=== PATIENT | male | born 1950 | race Caucasian/White ===

== ENCOUNTER 2018-01-26 07:49 | Emergency (ER) | payer BC ==
[2018-01-26 08:00] VITALS: BP 148/89
--- NOTE | 2018-01-26 08:33 | UC ---
Respiratory Complaint HPI - HPI Summary HPI Summary: This is a 68 yo male with h/o CAD who presents with c/o 5d of cough and congestion. Symptoms started after an aspiration event at dinner. He has had a productive cough, feverish for the first couple of days. Some anterior chest pain with deep inspiration. No dyspnea. No abd pain, n/v. - History of Current Complaint Chief Complaint: UCGeneralIllness Stated Complaint: URI Pain Intensity: 5 - Allergies/Home Medications Allergies/Adverse Reactions: Allergies Allergy/AdvReac Type Severity Reaction Status Date / Time beta blockers Allergy Severe Difficulty Uncoded 01/26/18 07:53 Breathing Home Medications: Home Medications Doxylamine/Phenylep/Dm/Aspirin [[facility] Day-Night Tab Eff] 1 tab PO ONCE PRN 01/26/18 [History Confirmed 01/26/18] Enalapril Maleate 2.5 mg PO DAILY 01/26/18 [History Confirmed 01/26/18] PMH/Surg Hx/FS Hx/Imm Hx Cardiovascular History: Cardiac Disease - s/p CABG - Surgical History Surgical History: Yes Surgery Procedure, Year, and Place: Bypass 2005, 2 stents 2009, - Family History Known Family History: Positive: Cardiac Disease - Social History Alcohol Use: Daily Alcohol Amount: 1 PER DAILY Substance Use Type: None Smoking Status (MU): Never Smoked Tobacco Review of Systems Constitutional: Fever, Fatigue Skin: Negative Eyes: Negative ENT: Negative Respiratory: Cough Cardiovascular: Negative Gastrointestinal: Negative Genitourinary: Negative Motor: Negative Neurovascular: Negative Musculoskeletal: Negative Neurological: Negative Psychological: Negative Is Patient Immunocompromised?: No All Other Systems Reviewed And Are Negative: Yes Physical Exam Triage Information Reviewed: Yes Appearance: Ill-Appearing Vital Signs: Initial Vital Signs Temp 98.0 F 01/26/18 07:56 Pulse 69 01/26/18 07:56 Resp 16 01/26/18 07:56 BP 148/89 01/26/18 07:56 Pulse Ox 98 01/26/18 07:56 Vital Signs Reviewed: Yes ENT: Positive: Pharynx normal, TM red - L Neck: Positive: Supple, Nontender Respiratory: Positive: Crackles - lungs bases bilaterally, but L>R. Negative: Rhonchi, Wheezing Cardiovascular: Positive: RRR, No Murmur Abdominal Exam: Normal Musculoskeletal Exam: Normal Neurological Exam: Normal Psychological Exam: Normal Skin Exam: Normal Diagnostic Evaluation - Laboratory O2 Sat by Pulse Oximetry: 98 Diagnostic Studies Comment: CXR - NAD Respiratory Course/Dx - Course Course Of Treatment: 68 yo male with h/o CAD who presents with 5d of productive cough and fevers. CXR shows no focal infiltrate. Based on clinical findings will treat for atypical PNA. - Differential Dx/Diagnosis Differential Diagnosis/HQI/PQRI: Asthma, Bronchitis, Lower Resp Infection Provider Diagnoses: Atypical PNA Discharge - Sign-Out/Discharge Documenting (check all that apply): Discharge/Admit/Transfer - Discharge Plan Condition: Stable Disposition: HOME Prescriptions: Doxycycline Hyclate 100 mg PO BID #14 tablet Patient Education Materials: Pneumonia (ED) Referrals: Cuco Sam MD [Primary Care Provider] - If Needed Additional Instructions: Instructions: 1. Please take antibiotics as directed 2. May use AlkaSeltzer for congestion relief - Billing Disposition and Condition Condition: STABLE Disposition: HOME
--- NOTE | 2018-01-26 09:03 | RAD ---
INDICATION: Cough and fever. COMPARISON: Comparison is made with prior study from January 15, 2006. TECHNIQUE: Dual-energy PA and lateral views of the chest were obtained. FINDINGS: The patient appears to be status post coronary artery bypass surgery. The heart is within normal limits in size. The lungs are underinflated. There is more focal elevation of the right hemidiaphragm which is unchanged from the prior exam. There is blunting of the right costophrenic angle which is also unchanged. The lungs are clear. IMPRESSION: POSTSURGICAL CHANGES, NO EVIDENCE FOR ACUTE FINDING.
== END 2018-01-26 09:31 | disposition home or self-care (01) ==
LOC: UCEAST 07:49
DX: J18.9 Pneumonia, unspecified organism (principal); I51.9 Heart disease, unspecified; Z95.5 Presence of coronary angioplasty implant and graft; Z95.1 Presence of aortocoronary bypass graft; Z88.8 Allergy status to other drugs, medicaments and biological substances
CPT/HCPCS: 71046; 99212; G0463